=== PATIENT | female | born 1950 | race Caucasian/White ===

== ENCOUNTER → 2017-10-14 | Outpatient (CLI) | payer OTHER, MEDICARE ==
[~2017-10-14] MED LIST: ADVAIR IH; ASPIRIN E.C. 8181 MG PO; MOBIC15 MG PO; PROAIR HFA0.09 MG/AC IH
== END ==
LOC: COL.RAD 14:46
DX: J44.9 Chronic obstructive pulmonary disease, unspecified (principal); R07.89 Other chest pain

== ENCOUNTER → 2018-07-18 | Outpatient (CLI) | payer OTHER, MEDICARE | LOC: COL.RAD 14:55 | DX: M25.552 Pain in left hip (principal); G89.29 Other chronic pain; M25.551 Pain in right hip; R10.2 Pelvic and perineal pain ==

== ENCOUNTER → 2020-06-13 | Outpatient (CLI) | payer MEDICARE | LOC: MC.RAD 12:59 | DX: N64.89 Other specified disorders of breast (principal) ==

== ENCOUNTER → 2022-07-12 | Outpatient (CLI) | payer MEDICARE | LOC: MC.RAD 08:14 | DX: N63.21 Unspecified lump in the left breast, upper outer quadrant (principal) ==